=== PATIENT | female | born 1930 | race Caucasian/White ===

== ENCOUNTER → 2016-10-29 | Outpatient (CLI) | payer MEDICARE ==
[~2016-10-29] MED LIST: AMARYL PO; AMARYL2 MG PO; AMLODIPINE BESY10 MG PO; AMLODIPINE PO; ASPIRIN PO; ASPIRIN81 M1 PO; ASPIRIN81 M2 PO; B-121000 MC1 PO; BETAPACE PO; CALCIUM + D 6001 TA1 PO; CALCIUM 500 + D1 TAB PO; CENTRUM PO; COUMADIN5 MG PO; COUMADIN7.5 MG PO; COZAAR PO; COZAAR100 MG PO; DELTASONE20 MG PO; HCTZ PO; HYDROCHLOROTHIA25 MG PO; HYZAAR 100-25 T1 TAB PO; K-DUR20 ME1 PO; MULTAQ400 MG PO; NORVASC PO; ONE DAILY FOR1 EAC3 PO; SIMVASTATIN20 MG PO; SOTALOL AF120 M1 PO; SOTALOL120 MG PO; TRANXENE PO; TRANXENE T-TA3.75 MG PO; VITAMIN B6200 MG PO; VITAMIN D400 UNI1 PO; ZOCOR PO; ZOCOR20 MG PO
[2016-10-29 12:48] LABS: INR 3.4; PROTHROMBIN TIME (PATIENT) 38.7 SECONDS (9.5-12.4)
== END | disposition home or self-care (01) ==
LOC: SLAB 10:48
PROVIDERS: Internal Medicine
DX: Z51.81 Encounter for therapeutic drug level monitoring (principal); I48.91 Unspecified atrial fibrillation; Z79.01 Long term (current) use of anticoagulants
CPT/HCPCS: 36415; 85610